=== PATIENT | male | born 1980 | race African-American/Black ===

== ENCOUNTER 2019-06-29 09:01 | Inpatient (IN) ==
[2019-06-29] MEDS ORDERED: ONDANSETRON 4 MG/2 ML VIAL IV STA (09:24)
[2019-06-29] MEDS ORDERED: PANTOPRAZOLE 40 MG VIAL IV STA (09:24)
[2019-06-29] MEDS ORDERED: SODIUM CHLORIDE 0.9% 1,000 ML IV STA (09:24)
[2019-06-29 09:46] LABS: Basophils # 0.1 10*3/uL (0.0-0.2); Basophils % 0.4 % (0.0-0.8); Eosinophils # 0.1 10*3/uL (0.0-0.87); Eosinophils % 0.4 % (0.00-10.9); Hematocrit 44.3 VOL% (42.0-52.0); Hemoglobin 15.1 GM/DL (14.0-18.0); Immature Granulocytes % 0.4 %; Immature Granulocytes Absolute 0.06 #; Lymphocytes # 1.9 10*3/uL (1.4-4.0); Lymphocytes % 13.7 % (21.2-54.2); Mean Corpuscular HGB Conc 34.1 GM/DL (32-36); Mean Corpuscular Volume 83.9 FL (87-102); Mean Platelet Volume 11.2 FL (9.6-12.0); Monocytes % 6.1 % (1.7-12.7); Platelet Count 155 T/CUMM (130-400); Red Blood Count 5.28 MC/CUMM (3.8-5.5); Red Cell Distribution Width 14.8 % (9.3-17.3); White Blood Count 13.5 T/CUMM (4-12)
[2019-06-29] MEDS ORDERED: HYDROmorphone 2 MG/1 ML VIAL ONE (09:48)
[2019-06-29] MEDS ORDERED: HYDROmorphone 2 MG/1 ML VIAL IV STA (09:48)
[2019-06-29 10:23] LABS: Bilirubin,Total 0.7 MG/DL (0.2-1.0); Calcium 9.9 MG/DL (8.5-10.1); Osmolality,Calculated 267.2 MOS/KG (273-304)
[2019-06-29] MEDS ORDERED: NICOTINE 21 MG/24 HR PATCH TRANSDERM PRN (12:46)
[2019-06-29] MEDS ORDERED: ONDANSETRON 4 MG/2 ML VIAL IV PRN (12:46)
[2019-06-29] MEDS ORDERED: GLUCAGON 1 MG VIAL IM PRN (12:46)
[2019-06-29] MEDS ORDERED: DEXTROSE 10% 250 ML BAG IV PRN (12:46)
[2019-06-29 13:50] LABS: Apearance,Urine CLEAR (Clear); Bilirubin,Urine Negative (Negative); Blood, Urine Small mg/dL (Negative); Glucose,Urine (UA) Negative (Negative); Ketones,Urine 5 mg/dL (Negative); Mucus,Urine Occasional /LPF (Occasional); Nitrite,Urine Negative (Negative); Protein,Urine Negative; RBC,Urine 2 /HPF (0-4); Urine Color Yellow (Yellow); Urine Specific Gravity 1.039 (1.001-1.035); Urine Urobilinogen < 2.0 EU/DL (0.2-1.0); WBC,Urine 1 /HPF (0-6)
[2019-06-29] MEDS: cloNIDine 0.1 MG TABLET PO SCH ×2 (15:45→20:47)
[2019-06-29] MEDS: MORPHINE 4 MG/1 ML VIAL IV PRN ×2 (15:48→20:47)
[2019-06-29] MEDS: SODIUM CHLORIDE 0.9% 1,000 ML IV SCH ×2 (15:49→22:24)
[2019-06-29] MEDS: ENOXAPARIN 40 MG/0.4 ML SYRINGE SUBCUT SCH (20:47)
[2019-06-30] MEDS: SODIUM CHLORIDE 0.9% 1,000 ML IV SCH ×3 (06:39→18:48)
[2019-06-30 07:14] LABS: Basophils % 0.1 % (0.0-0.8); Eosinophils % 0.1 % (0.00-10.9); Hematocrit 41.1 VOL% (42.0-52.0); Hemoglobin 13.8 GM/DL (14.0-18.0); Immature Granulocytes % 0.4 %; Immature Granulocytes Absolute 0.06 #; Lymphocytes # 1.2 10*3/uL (1.4-4.0); Lymphocytes % 9.2 % (21.2-54.2); Mean Corpuscular HGB Conc 33.6 GM/DL (32-36); Mean Corpuscular Volume 84.4 FL (87-102); Monocytes % 8.9 % (1.7-12.7); Neutrophils % 81.3 % (38.7-73.9); Platelet Count 147 T/CUMM (130-400); Red Blood Count 4.87 MC/CUMM (3.8-5.5); Red Cell Distribution Width 14.6 % (9.3-17.3); White Blood Count 13.5 T/CUMM (4-12)
[2019-06-30 07:31] LABS: Albumin 3.5 G/DL (3.4-5.0); Bilirubin,Total 0.7 MG/DL (0.2-1.0); Calcium 8.7 MG/DL (8.5-10.1); Osmolality,Calculated 268.1 MOS/KG (273-304); Total Protein 7.5 G/DL (6.4-8.3)
[2019-06-30] MEDS ORDERED: HYDROmorphone 2 MG/1 ML VIAL IV PRN (08:06)
[2019-06-30] MEDS: cloNIDine 0.1 MG TABLET PO SCH ×2 (08:29→20:11)
[2019-06-30] MEDS: PIPERACILLIN/TAZOBACTAM 3,375 MG in SODIUM CHLORIDE 0.9% 100 ML IV SCH ×2 (13:37→18:19)
[2019-06-30] MEDS: amLODIPine 5 MG TABLET PO SCH (16:40)
[2019-06-30] MEDS: ENOXAPARIN 40 MG/0.4 ML SYRINGE SUBCUT SCH (20:12)
[2019-07-01] MEDS: SODIUM CHLORIDE 0.9% 1,000 ML IV SCH ×3 (01:24→09:06)
[2019-07-01] MEDS: PIPERACILLIN/TAZOBACTAM 3,375 MG in SODIUM CHLORIDE 0.9% 100 ML IV SCH ×2 (03:33→14:07)
[2019-07-01 07:06] LABS: Basophils % 0.2 % (0.0-0.8); Eosinophils % 0.3 % (0.00-10.9); Hematocrit 36.1 VOL% (42.0-52.0); Hemoglobin 12.2 GM/DL (14.0-18.0); Immature Granulocytes % 0.7 %; Immature Granulocytes Absolute 0.09 #; Lymphocytes # 1.7 10*3/uL (1.4-4.0); Lymphocytes % 13.2 % (21.2-54.2); Mean Corpuscular HGB Conc 33.8 GM/DL (32-36); Mean Corpuscular Volume 84.9 FL (87-102); Monocytes % 10.1 % (1.7-12.7); Neutrophils % 75.5 % (38.7-73.9); Platelet Count 139 T/CUMM (130-400); Red Blood Count 4.25 MC/CUMM (3.8-5.5); Red Cell Distribution Width 14.6 % (9.3-17.3); White Blood Count 12.7 T/CUMM (4-12)
[2019-07-01 07:21] LABS: Albumin 3.1 G/DL (3.4-5.0); Bilirubin,Total 0.7 MG/DL (0.2-1.0); Calcium 8.5 MG/DL (8.5-10.1); Osmolality,Calculated 266.1 MOS/KG (273-304); Total Protein 6.9 G/DL (6.4-8.3)
[2019-07-01] MEDS: POTASSIUM CHLORIDE RIDER 10 MEQ in PREMIX 1 EACH IV SCH ×4 (08:04→12:32)
[2019-07-01] MEDS: cloNIDine 0.1 MG TABLET PO SCH (08:04)
[2019-07-01] MEDS: amLODIPine 5 MG TABLET PO SCH (08:04)
[2019-07-01 15:10] VITALS: BP 151/88
== END 2019-07-01 16:08 | disposition home or self-care (01) | DRG 440 ==
LOC: N.ED 09:01 → SUATTDRO 12:46 → N.EDINP 12:46 → N.3E 13:41
PROVIDERS: ADMIT Internal Medicine Geriatric Medicine; ATTEND Internal Medicine

== ENCOUNTER 2020-04-23 12:54 | Inpatient (IN) ==
[2020-04-23] MEDS ORDERED: SODIUM CHLORIDE 0.9% 1,000 ML IV STA (14:32)
[2020-04-23 14:37] LABS: Basophils # 0.1 10*3/uL (0.0-0.2); Basophils % 0.5 % (0.0-0.8); Eosinophils % 0.3 % (0.00-10.9); Hematocrit 42.6 VOL% (42.0-52.0); Hemoglobin 14.5 GM/DL (14.0-18.0); Immature Granulocytes % 0.3 %; Immature Granulocytes Absolute 0.04 #; Lymphocytes # 2.3 10*3/uL (1.4-4.0); Lymphocytes % 19.5 % (21.2-54.2); Mean Corpuscular Volume 84.9 FL (87-102); Mean Platelet Volume 9.9 FL (9.6-12.0); Neutrophils % 71.4 % (38.7-73.9); Platelet Count 248 T/CUMM (130-400); Red Blood Count 5.02 MC/CUMM (3.8-5.5); Red Cell Distribution Width 14.7 % (9.3-17.3); White Blood Count 11.7 T/CUMM (4-12)
[2020-04-23 14:54] LABS: Bilirubin,Total 0.7 MG/DL (0.2-1.0); Calcium 9.3 MG/DL (8.5-10.1); Osmolality,Calculated 265.4 MOS/KG (273-304); Potassium 3.6 MMOL/L (3.5-5.1); Total Protein 8.9 G/DL (6.4-8.3)
[2020-04-23 15:31] LABS: Bilirubin,Urine Negative (Negative); Blood, Urine Small mg/dL (Negative); Glucose,Urine (UA) Negative (Negative); Ketones,Urine 80 mg/dL (Negative); Mucus,Urine Many /LPF (Occasional); Nitrite,Urine Negative (Negative); Protein,Urine 30 MG/DL; RBC,Urine 1 /HPF (0-4); Squamous Epithelial Cell,Urine Occasional /HPF (0-10); Urine Appearance CLEAR (Clear); Urine Color Yellow (Yellow); Urine Specific Gravity 1.021 (1.001-1.035); Urine Urobilinogen < 2.0 EU/DL (0.2-1.0); WBC,Urine 3 /HPF (0-6)
[2020-04-23 15:37] LABS: Barbiturates Screen,Urine Negative (Negative); Benzodiazepines Screen,Urine Negative (Negative); Cannabinoid Screen,Urine Positive (Negative); Opiate Screen,Urine Negative (Negative); Phencyclidine Screen,Urine Negative (Negative)
[2020-04-23] MEDS ORDERED: ONDANSETRON ODT 4 MG TABLET PO STA (15:53)
[2020-04-23] MEDS ORDERED: ONDANSETRON 4 MG/2 ML VIAL ONE (16:16)
[2020-04-23] MEDS ORDERED: ONDANSETRON 4 MG/2 ML VIAL IV STA (16:21)
[2020-04-23] MEDS ORDERED: DEXTROSE 50% 25 GM/50 ML VIAL IV PRN (16:58)
[2020-04-23] MEDS ORDERED: LORazepam 2 MG/1 ML VIAL IV PRN (16:58)
[2020-04-23] MEDS ORDERED: ONDANSETRON 4 MG/2 ML VIAL IV PRN (16:58)
[2020-04-23] MEDS ORDERED: GLUCAGON 1 MG VIAL IM PRN (16:58)
[2020-04-23] MEDS ORDERED: MORPHINE 4 MG/1 ML VIAL IV PRN (16:58)
[2020-04-23 17:25] LABS: Risk Ratio 2.46; VLDL CHOLESTEROL 30.8 MG/DL
[2020-04-23] MEDS: THIAMINE 100 MG TABLET PO SCH (18:39)
[2020-04-23] MEDS: FOLIC ACID 1 MG TABLET PO SCH (18:39)
[2020-04-23] MEDS: MULTIVITAMIN (CENTRUM) TABLET PO SCH (18:39)
[2020-04-23] MEDS: ENOXAPARIN 40 MG/0.4 ML SYRINGE SUBCUT SCH (18:40)
[2020-04-23] MEDS: PANTOPRAZOLE 40 MG TABLET PO SCH (18:40)
[2020-04-23] MEDS: SODIUM CHLORIDE 0.9% 1,000 ML IV SCH (18:40)
[2020-04-24] MEDS: SODIUM CHLORIDE 0.9% 1,000 ML IV SCH ×2 (05:58→14:39)
[2020-04-24 06:16] LABS: Basophils % 0.3 % (0.0-0.8); Eosinophils % 0.2 % (0.00-10.9); Hematocrit 38.7 VOL% (42.0-52.0); Hemoglobin 13.3 GM/DL (14.0-18.0); Immature Granulocytes % 0.4 %; Immature Granulocytes Absolute 0.05 #; Lymphocytes # 1.6 10*3/uL (1.4-4.0); Lymphocytes % 12.2 % (21.2-54.2); Mean Corpuscular HGB Conc 34.4 GM/DL (32-36); Mean Corpuscular Volume 85.4 FL (87-102); Monocytes % 8.2 % (1.7-12.7); Neutrophils % 78.7 % (38.7-73.9); Platelet Count 234 T/CUMM (130-400); Red Blood Count 4.53 MC/CUMM (3.8-5.5); Red Cell Distribution Width 14.4 % (9.3-17.3); White Blood Count 12.9 T/CUMM (4-12)
[2020-04-24 06:45] LABS: Albumin 3.2 G/DL (3.4-5.0); Bilirubin,Total 0.8 MG/DL (0.2-1.0); Calcium 8.6 MG/DL (8.5-10.1); Osmolality,Calculated 267.1 MOS/KG (273-304); Potassium 3.7 MMOL/L (3.5-5.1); Total Protein 7.3 G/DL (6.4-8.3)
[2020-04-24] MEDS: MULTIVITAMIN (CENTRUM) TABLET PO SCH (09:21)
[2020-04-24] MEDS: PANTOPRAZOLE 40 MG TABLET PO SCH (09:21)
[2020-04-24] MEDS: THIAMINE 100 MG TABLET PO SCH (09:21)
[2020-04-24] MEDS: FOLIC ACID 1 MG TABLET PO SCH (09:21)
[2020-04-24] MEDS: amLODIPine 5 MG TABLET PO SCH (09:21)
[2020-04-24] MEDS: chlordiazePOXIDE 25 MG CAPSULE PO SCH ×2 (14:40→20:16)
[2020-04-24] MEDS: ENOXAPARIN 40 MG/0.4 ML SYRINGE SUBCUT SCH (17:32)
[2020-04-25] MEDS: SODIUM CHLORIDE 0.9% 1,000 ML IV SCH ×3 (01:20→18:44)
[2020-04-25 07:40] LABS: Basophils % 0.2 % (0.0-0.8); Eosinophils % 0.2 % (0.00-10.9); Hematocrit 37.6 VOL% (42.0-52.0); Hemoglobin 13.3 GM/DL (14.0-18.0); Immature Granulocytes % 0.8 %; Immature Granulocytes Absolute 0.12 #; Lymphocytes # 1.3 10*3/uL (1.4-4.0); Lymphocytes % 8.9 % (21.2-54.2); Mean Corpuscular HGB Conc 35.4 GM/DL (32-36); Mean Corpuscular Volume 82.8 FL (87-102); Mean Platelet Volume 11.4 FL (9.6-12.0); Monocytes % 8.7 % (1.7-12.7); Neutrophils % 81.2 % (38.7-73.9); Platelet Count 199 T/CUMM (130-400); Red Blood Count 4.54 MC/CUMM (3.8-5.5); Red Cell Distribution Width 14.2 % (9.3-17.3); White Blood Count 14.6 T/CUMM (4-12)
[2020-04-25 08:07] LABS: Calcium 8.6 MG/DL (8.5-10.1); Osmolality,Calculated 263.2 MOS/KG (273-304); Potassium 3.4 MMOL/L (3.5-5.1)
[2020-04-25] MEDS: chlordiazePOXIDE 25 MG CAPSULE PO SCH ×2 (09:26→20:59)
[2020-04-25] MEDS: MULTIVITAMIN (CENTRUM) TABLET PO SCH (09:26)
[2020-04-25] MEDS: THIAMINE 100 MG TABLET PO SCH (09:27)
[2020-04-25] MEDS: FOLIC ACID 1 MG TABLET PO SCH (09:27)
[2020-04-25] MEDS: PANTOPRAZOLE 40 MG TABLET PO SCH (09:27)
[2020-04-25] MEDS: amLODIPine 5 MG TABLET PO SCH (09:27)
[2020-04-25 10:19] LABS: Alanine Aminotransferase 18 U/L (16-61); Alkaline Phosphatase 59 U/L (45-117); Aspartate Amino Transferase 17 U/L (0-37); Bilirubin,Direct < 0.100 MG/DL (0.0-0.20); Bilirubin,Indirect 0.3 MG/DL (0.0-1.0); Total Protein 7.1 G/DL (6.4-8.3)
[2020-04-25] MEDS ORDERED: POTASSIUM CHLORIDE 20 MEQ TABLET PO ONE (12:49)
[2020-04-25] MEDS ORDERED: amLODIPine 5 MG TABLET PO SCH (13:12)
[2020-04-25] MEDS: ENOXAPARIN 40 MG/0.4 ML SYRINGE SUBCUT SCH (17:14)
[2020-04-26 06:57] LABS: Basophils % 0.4 % (0.0-0.8); Eosinophils # 0.1 10*3/uL (0.0-0.87); Eosinophils % 0.8 % (0.00-10.9); Hematocrit 35.7 VOL% (42.0-52.0); Hemoglobin 12.5 GM/DL (14.0-18.0); Immature Granulocytes % 0.5 %; Immature Granulocytes Absolute 0.05 #; Lymphocytes # 1.8 10*3/uL (1.4-4.0); Lymphocytes % 17.1 % (21.2-54.2); Mean Corpuscular Volume 82.1 FL (87-102); Mean Platelet Volume 10.3 FL (9.6-12.0); Monocytes % 8.9 % (1.7-12.7); Neutrophils % 72.3 % (38.7-73.9); Platelet Count 167 T/CUMM (130-400); Red Blood Count 4.35 MC/CUMM (3.8-5.5); Red Cell Distribution Width 14.1 % (9.3-17.3); White Blood Count 10.4 T/CUMM (4-12)
[2020-04-26] MEDS: THIAMINE 100 MG TABLET PO SCH (08:00)
[2020-04-26] MEDS: MULTIVITAMIN (CENTRUM) TABLET PO SCH (08:01)
[2020-04-26] MEDS: FOLIC ACID 1 MG TABLET PO SCH (08:01)
[2020-04-26] MEDS: chlordiazePOXIDE 25 MG CAPSULE PO SCH (08:01)
[2020-04-26] MEDS: PANTOPRAZOLE 40 MG TABLET PO SCH (08:01)
[2020-04-26 10:18] LABS: Calcium 8.3 MG/DL (8.5-10.1); Osmolality,Calculated 265.1 MOS/KG (273-304); Potassium 3.2 MMOL/L (3.5-5.1)
[2020-04-26] MEDS: SODIUM CHLORIDE 0.9% 1,000 ML IV SCH ×2 (10:22→10:23)
[2020-04-26 12:09] VITALS: BP 148/96
[2020-04-26] MEDS ORDERED: POTASSIUM CHLORIDE 20 MEQ TABLET PO ONE (13:00)
== END 2020-04-26 12:17 | disposition home or self-care (01) | DRG 439 ==
LOC: N.5E 12:54 → N.ED 12:54 → SUATTDRO 16:58 → N.5E 18:15
PROVIDERS: ADMIT Internal Medicine; ATTEND Internal Medicine